=== PATIENT | male | born 1960 | race Two or more races ===

== ENCOUNTER 2024-10-12 16:00 | Inpatient (IN) | payer BC, OTHER ==
[~2024-10-12] VITALS: Ht 177.8 cm; Wt 81.0 kg
--- NOTE | 2024-10-12 17:57 | ED.PDOC ---
Foreign Body HPI Comments HPI: 64 y/o M, presents to the ED for CC of foreign body. Patient states, he has a hiatal hernia and has difficulty eating d/t food constantly getting food stuck in his esophageus; endorses eating a chicken sandwich and having increased vomiting onset, today (10/12/24). Patient relays, following issue having difficulty swallowing with associated regurgitation. Patient denies shortness of breath, excessive drooling, or pain. No other symptoms or modifying factors present at this time. Initial Vitals BP: 129/86 HR:107 RR:22 O2: 97% Temp: 98.7 Past Medical History: Hiatal hernia, HTN, GERD Past Surgical History: APPENDECTOMY Social History: Denies ETOH, smoking, and drug use. Medications: DENIES ANY Allergies: NKA CHACHO, hiatal hernia. HPI: Poor Historian. Past Medical History: Past Surgical History: REVIEW OF SYSTEMS: CONSTITUTIONAL: Denies acute: fever, diaphoresis, chills, generalized weakness. HEAD: Denies acute: headache, photophobia Eyes: Denies acute: Double vision, vision loss, eye pain, eye discharge. EARS: Denies acute: tinnitus, hearing loss, ear discharge, ear pain, THROAT: Denies acute: sore throat, swelling, difficulty swallowing , pain with swallowing, change in voice. NECK: Denies acute: neck pain, neck swelling, stiff neck. HEART: Denies acute : chest pain, palpitations, LUNGS: Denies acute: SOB, wheezing, cough, hemoptysis ABDOMEN: Denies acute: abdominal pain, , diarrhea, melena , hematemesis, hematochezia SKIN: Denies acute: rash, redness, lesions, itchiness. EXTREMITIES: Denies acute: calf pain, numbness, tingling, weakness, denies pain in extremity. Denies acute: Low back pain. Neuro: Denies acute: focal neurological deficit, motor or sensory focal neurological deficit, tremors, seizure like activity, confusion, dizziness, change in mental status, loss of bowel or bladder function, cauda equina like symptoms. : Denies acute: dysuria, hematuria, flank pain, increase in urinary frequency. PSYCH: Denies acute: hallucination, suicidal ideation, homicidal ideation. PHYSICAL EXAM: General: ----no----acute distress, awake and alert. Head: normocephalic, atraumatic. Neck: supple, trachea is midline, no swelling. Throat: Normal phonation. Eyes:, no erythema, no purulent discharge, no proptosis, no icterus. Heart: regular rate, regular rhythm, no significant murmur appreciated. Lungs: no apparent respiratory distress, Able to speak in full sentences. No wheezing, no rhonchi, no crackles. No stridors Clear to auscultation bilaterally. Abdomen: non tender to palpation, non distended, soft, no guarding, no rebound, + bowel sounds. Neuro: Awake, Alert, oriented to name, self, situation, follows commands GCS=15. Speech is normal. Skin: no petechia, no purpura, no cyanosis, non-pale, not jaundice. Lower extremities: --no - Pitting edema no deformity, no focal swelling, no calf TTP. Makes eye contact. moves all four extremities. Face: no apparent facial droop. Ambulating in the ED independently. ED COURSE: DISCLAIMER: This medical document was created using an electronic medical record system with voice recognition software and computerized dictation system. Although this document has been carefully reviewed, there might still be some phonetic and typographical errors. Occasional wrong-word or "sound-alike" substitutions may have occurred due to the inherent limitations of voice recognition software. These areas are purely typographical due to imperfections of the software programs and do not reflect any compromise in the patient's medical care. Please read the chart carefully and recognize, using context, where these substitutions have occurred. Chief Complaint: Foreign Body Time Seen by MD: 17:15 History of Present Illness: Nurses Notes, Medications, Allergies Allergies: Coded Allergies: NO KNOWN ALLERGIES (Unverified , 10/12/24) Home Meds Reported Medications Amlodipine Besylate (Amlodipine Besylate) 10 Mg Tab, 1 TAB PO DAILY 10/13/24 Information Source: Patient Mode of Arrival: Ambulatory Timing: Minutes Duration: Since onset Severity: Mild Ability to handle secretions: Difficult Prehospital treatment: None Location: Esophagus Context: Ingestion Foreign Body: Food Removal: Was not attempted Associated signs and symptoms: Other (vomiting) Was a procedure done? Was a procedure done?: No FB Differential Dx Differential Diagnosis: Esophageal Obstruction, Foreign Body, Perforation, Other (Hiatal hernia, esophageal strictures, neoplasm, obstruction, volvulus,) X-Ray, Labs, Meds, VS Vital Signs Date Time Temp Pulse Resp B/P (MAP) Pulse Ox O2 Delivery O2 Flow Rate FiO2 10/12/24 20:30 135/90 10/12/24 20:29 97.8 79 18 135/90 (105) 97 97.8 10/12/24 20:14 Room Air* 0 21 10/12/24 16:15 98.7 107 22 129/86 (100) 7 98.7 Lab Test 10/12/24 21:40 Range/Units White Blood Count 10.5 4.4-10.8 10^3/uL Red Blood Count 5.61 4.5-5.90 10^6/uL Hemoglobin 16.9 13.5-17.5 g/dL Hematocrit 49.4 41.0-53.0 % Mean Corpuscular Volume 88.2 80.0-100.0 fL Mean Corpuscular Hemoglobin 30.2 28.0-32.0 pg Mean Corpuscular Hemoglobin Concent 34.2 32.0-36.0 g/dL Red Cell Distribution Width 13.4 11.8-14.3 % Platelet Count 199 140-450 10^3/uL Mean Platelet Volume 8.4 6.9-10.8 fL Neutrophils (%) (Auto) 74.8 37.0-80.0 % Lymphocytes (%) (Auto) 17.5 10.0-50.0 % Monocytes (%) (Auto) 6.9 0.0-12.0 % Eosinophils (%) (Auto) 0.4 0.0-7.0 % Basophils (%) (Auto) 0.4 0.0-2.0 % Neutrophils # (Auto) 7.8 1.6-8.6 10 ^3/uL Lymphocytes # (Auto) 1.8 0.4-5.4 10 ^3/uL Monocytes # (Auto) 0.7 0-1.3 10 ^3/uL Eosinophils # (Auto) 0 0-0.8 10 ^3/uL Basophils # (Auto) 0 0-0.2 10 ^3/uL Nucleated Red Blood Cells 0.0 % Sodium Level 141 136-145 mmol/L Potassium Level 3.7 3.5-5.1 mmol/L Chloride Level 105 98-107 mmol/L Carbon Dioxide Level 28 20-31 mmol/L Anion Gap 8 5-15 Blood Urea Nitrogen 14 9-23 mg/dL Creatinine 1.46 H 0.700-1.30 mg/dL Glomerular Filtration Rate Calc 53 >90 mL/min BUN/Creatinine Ratio 9.6 L 10.0-20.0 Serum Glucose 117 H 74-106 mg/dL Lactic Acid Level 0.8 0.4-2.0 mmol/L Calcium Level 9.2 8.7-10.4 mg/dL Total Bilirubin 0.7 0.2-1.0 mg/dL Aspartate Amino Transferase (AST) 21 13-40 U/L Alanine Aminotransferase (ALT) 21 7-40 U/L Alkaline Phosphatase 73 46-116 U/L Total Protein 7.2 5.7-8.2 g/dL Albumin 4.6 3.2-4.8 g/dL [place] [address] Ph: [phone] DIAGNOSTIC IMAGING Diagnostic Imaging Report : [id number] Signed PATIENT: CHACHO CORBETTACCT: [id number] UNIT: [id number] : 1960 LOC: ER ROOM / BED: / AGE / SEX: 64 / M ADM STATUS: REG ER SERVICE 31 ORDERING PHYSICIAN: RAOUL GODWIN DO PROCEDURE(s): ABPL - CT AB PEL WO CON-NO ORAL OR IV REASON: Bolus impaction, nausea vomiting ORDER NUMBER(s): [id number], ACCESSION NUMBER(s): [id number] Exam: CT CT AB PEL WO CON-NO ORAL OR IV History: Bolus impaction, nausea vomiting Comparison Study: None Technique: Multidetector spiral CT of the abdomen was performed from lung bases to pubic symphysis. Imaging was performed without IV contrast. Axial, coronal and sagittal multiplanar reformats were obtained from the axial data set by the technologist. Radiation dose : 1. Abdomen/Pelvis: CTDIvol 11.82 mGy, DLP 625.03 mGy*cm. Findings: Evaluation of solid organs is limited due to lack of intravenous contrast use. Lung bases are unremarkable The liver, gallbladder, spleen, pancreas, adrenal glands, kidneys, and urinary bladder unremarkable. Prostate is enlarged measuring 6 cm. Small hiatal hernia. Small bowel is within normal limits. Status post appendectomy. Several colonic diverticula at the hepatic flexure. Mild diverticulosis within the descending colon. Minimal atherosclerotic calcifications. Lymph nodes around markable. The bones are within normal limits. IMPRESSION: 1. No acute abdominal or pelvic findings. 2. Small hiatal hernia 3. Prostatomegaly 4. Minimal diverticulosis 5. Status post appendectomy Radiation optimization: All CT scans at this facility use at least one of these dose optimization techniques: automated exposure control mA and/or kV adjustment per patient size (includes targeted exams where dose is matched to clinical indication) or iterative reconstruction. ATED BY: SHIREEN FOX MD DICTATED DATE/TIME: 10/12/242204 SIGNED BY: SHIREEN FOX MD SIGNED DATE/TIME: 10/12/242204 CC: Time of 1ST Reevaluation: 17:45 Reevaluation 1ST: Unchanged Time of 2ND Reevaluation: 22:14 (Patient did not improve despite medications. I will admit the patient for GI evaluation.) Reevaluation 2ND: Unchanged Patient Education/Counseling: Diagnosis, Treatment Family Education/Counseling: No Family Present Comments Patient presented with the above HPI.---food bolus impaction--workup was initiated. patient was found with the above mentioned diagnosis. the following medications were ordered: please refer to order lists of meds and tests obtained by myself Dr. Godwin. Patient ED course and VS have been stabilized. Patient has been reassessed in the ED and remained in a stable condition. Pertinent incidental findings were discussed with the patient and/or family. Patient/family voices understanding and is agreeable with plan. Patient has been observed in the ED adequate length of time to insure improvement/stability. Escalation of care considered: Consideration of escalation to observation or admission Patient was given nitroglycerin sublingual to help to relax his esophageal sphincter, glucagon, patient persisted to have his symptoms. Patient was ADMITTED to the medicine team for further evaluation and treatment of their presentation. All the reports of any imaging studies that were ordered by myself were reviewed by myself. Departure 1 Departure Time of Disposition: 22:13 Impression: Primary Impression: Bolus impaction of digestive tract Disposition: ADMITTED INPATIENT Admit to: Tele Condition: Guarded Discharged With: Self Critical Care Note Critical Care Time?: No I personally scribed for RAOUL GODWIN DO ([email or web address]) on 10/12/24 at 17:57. Electronically submitted by Lottie Rodriguez ([email or web address]). I personally scribed for RAOUL GODWIN DO ([email or web address]) on 10/12/24 at 19:34. Electronically submitted by Monica Basilio ([email or web address]). RAOUL GODWIN DO Oct 12, 2024 17:57
[2024-10-12] MEDS: SODIUM CHLORIDE 0.9% 500 ML IV ONE (20:20)
[2024-10-12] MEDS: NITROGLYCERIN 0.4 MG SL TAB SL ONE (20:30)
[2024-10-12] MEDS: GLUCAGON EMERG KIT 1mg/1ml IV ONE (20:35)
--- NOTE | 2024-10-12 22:07 | DVH ---
Exam: CT CT AB PEL WO CON-NO ORAL OR IV History: Bolus impaction, nausea vomiting Comparison Study: None Technique: Multidetector spiral CT of the abdomen was performed from lung bases to pubic symphysis. Imaging was performed without IV contrast. Axial, coronal and sagittal multiplanar reformats were ob tained from the axial data set by the technologist. Radiation dose : 1. Abdomen/Pelvis: CTDIvol 11.82 mGy, DLP 625.03 mGy*cm. Findings: Evaluation of solid organs is limited due to lack of intravenous contrast use. Lung bases are unremarkable The liver, gallbladder, spleen, pancreas, adrenal glands, kidneys, and urinary bladder unremarkable. Prostate is enlarged measuring 6 cm. Small hiatal hernia. Small bowel is within normal limits. Status post appendectomy. Several colonic d iverticula at the hepatic flexure. Mild diverticulosis within the descending colon. Minimal atherosclerotic calcifications. Lymph nodes around markable. The bones are within normal limits. IMPRESSION: 1. No acute abdominal or pelvic findings. 2. Small hiatal hernia 3. Prostatomegaly 4. Minimal diverticulosis 5. Status post appendectomy Radiation optimization: All CT scans at this facility use at least one of these dose optimization rafa hniques: automated exposure control mA and/or kV adjustment per patient size (includes targeted exam s where dose is matched to clinical indication) or iterative reconstruction.
[2024-10-12 22:22] LABS: Hematocrit 49.4 % (41.0-53.0); Hemoglobin 16.9 g/dL (13.5-17.5); Mean Corpuscular Hemoglobin 30.2 pg (28.0-32.0); Mean Corpuscular Volume 88.2 fL (80.0-100.0); Nucleated Red Blood Cells % 0.0 %
[2024-10-12 22:38] LABS: Alanine Aminotransferase 21 U/L (7-40); Albumin 4.6 g/dL (3.2-4.8); Alkaline Phosphatase 73 U/L (46-116); Anion Gap 8 (5-15); BUN/Creatinine Ratio 9.6 (10.0-20.0); Bilirubin, Total 0.7 mg/dL (0.2-1.0); Blood Urea Nitrogen 14 mg/dL (9-23); Calcium 9.2 mg/dL (8.7-10.4); Carbon Dioxide 28 mmol/L (20-31); Chloride 105 mmol/L (98-107); Glucose 117 mg/dL (74-106); Potassium 3.7 mmol/L (3.5-5.1); Sodium 141 mmol/L (136-145); Total Protein 7.2 g/dL (5.7-8.2)
[2024-10-13] VITALS (10 sets, daily range): BP systolic 119–149; BP diastolic 73–95; PULSE 71–86; RESP 13–18; TEMP 98–98.3; O2SAT 92–98
[2024-10-13] MEDS ORDERED: ONDANSETRON HCL 4 MG/2 ML VIAL IV PRN
--- NOTE | 2024-10-13 00:21 | DVHHP2 ---
History of Present Illness Reason for Visit: Food impaction History of Present Illness 64-year-old male presents for evaluation of foreign body. Patient reports a history of a hiatal hernia and has had episodes of food getting stuck. He states today while eating a sandwich he was unable to swallow. Patient states having several episodes of vomiting and increased salivation. No shortness a breath. No other acute complaints. Past Medical History Hypertension, GERD, hiatal hernia Past Surgical History Appendectomy Family History Noncontributory Smoke: No ALCOHOL: none Drugs: None Lives: with Family Review of Systems Review of Systems Review of systems are currently negative otherwise addressed in HPI. Allergies: Coded Allergies: NO KNOWN ALLERGIES (Unverified , 10/12/24) Medications Current Medications Medications Dose Ordered Sig/Isabel Route Start Time Stop Time Status Last Admin Dose Admin Pantoprazole Sodium 40 mg DAILY IV 10/13/24 10:00 Ondansetron HCl 4 mg Q4HP PRN IV 10/13/24 00:00 Exam Vital Signs Vital Signs Date Time Temp Pulse Resp B/P (MAP) Pulse Ox O2 Delivery O2 Flow Rate FiO2 10/12/24 20:30 135/90 10/12/24 20:29 97.8 79 18 97 97.8 10/12/24 20:14 Room Air* 0 21 Exam Gen: 64-year-old male in mild Skin: Warm, dry, normal color and texture, no rash. HEENT: Normocephalic atraumatic, mucous membranes moist and pink. Neck: Cervical and supraclavicular nodes normal without enlargement, trachea is midline, thyroid gland is normal without masses. Pulmonary: Clear to auscultation and percussion bilaterally. Cardiac: Regular rate and rhythm. No murmur Abdomen: Soft, nontender, nondistended, bowel sounds present all 4 quadrants, no guarding, no rigidity, no organomegaly. Extremities: No cyanosis, clubbing, no edema Neuro: Cranial nerves II through XII grossly intact, normal affect and speech, no focal motor deficits. Labs/Xrays ORDERING PHYSICIAN: RAOUL GODWIN DO PROCEDURE(s): ABPL - CT AB PEL WO CON-NO ORAL OR IV REASON: Bolus impaction, nausea vomiting ORDER NUMBER(s): [id number], ACCESSION NUMBER(s): [id number] Exam: CT CT AB PEL WO CON-NO ORAL OR IV History: Bolus impaction, nausea vomiting Comparison Study: None Technique: Multidetector spiral CT of the abdomen was performed from lung bases to pubic symphysis. Imaging was performed without IV contrast. Axial, coronal and sagittal multiplanar reformats were obtained from the axial data set by the technologist. Radiation dose : 1. Abdomen/Pelvis: CTDIvol 11.82 mGy, DLP 625.03 mGy*cm. Findings: Evaluation of solid organs is limited due to lack of intravenous contrast use. Lung bases are unremarkable The liver, gallbladder, spleen, pancreas, adrenal glands, kidneys, and urinary bladder unremarkable. Prostate is enlarged measuring 6 cm. Small hiatal hernia. Small bowel is within normal limits. Status post appendectomy. Several colonic diverticula at the hepatic flexure. Mild diverticulosis within the descending colon. Minimal atherosclerotic calcifications. Lymph nodes around markable. The bones are within normal limits. IMPRESSION: 1. No acute abdominal or pelvic findings. 2. Small hiatal hernia 3. Prostatomegaly 4. Minimal diverticulosis 5. Status post appendectomy Radiation optimization: All CT scans at this facility use at least one of these dose optimization techniques: automated exposure control mA and/or kV adjustment per patient size (includes targeted exams where dose is matched to clinical indication) or iterative reconstruction. Labs Test 10/12/24 21:40 Range/Units White Blood Count 10.5 4.4-10.8 10^3/uL Red Blood Count 5.61 4.5-5.90 10^6/uL Hemoglobin 16.9 13.5-17.5 g/dL Hematocrit 49.4 41.0-53.0 % Mean Corpuscular Volume 88.2 80.0-100.0 fL Mean Corpuscular Hemoglobin 30.2 28.0-32.0 pg Mean Corpuscular Hemoglobin Concent 34.2 32.0-36.0 g/dL Red Cell Distribution Width 13.4 11.8-14.3 % Platelet Count 199 140-450 10^3/uL Mean Platelet Volume 8.4 6.9-10.8 fL Neutrophils (%) (Auto) 74.8 37.0-80.0 % Lymphocytes (%) (Auto) 17.5 10.0-50.0 % Monocytes (%) (Auto) 6.9 0.0-12.0 % Eosinophils (%) (Auto) 0.4 0.0-7.0 % Basophils (%) (Auto) 0.4 0.0-2.0 % Neutrophils # (Auto) 7.8 1.6-8.6 10 ^3/uL Lymphocytes # (Auto) 1.8 0.4-5.4 10 ^3/uL Monocytes # (Auto) 0.7 0-1.3 10 ^3/uL Eosinophils # (Auto) 0 0-0.8 10 ^3/uL Basophils # (Auto) 0 0-0.2 10 ^3/uL Nucleated Red Blood Cells 0.0 % Sodium Level 141 136-145 mmol/L Potassium Level 3.7 3.5-5.1 mmol/L Chloride Level 105 98-107 mmol/L Carbon Dioxide Level 28 20-31 mmol/L Anion Gap 8 5-15 Blood Urea Nitrogen 14 9-23 mg/dL Creatinine 1.46 H 0.700-1.30 mg/dL Glomerular Filtration Rate Calc 53 >90 mL/min BUN/Creatinine Ratio 9.6 L 10.0-20.0 Serum Glucose 117 H 74-106 mg/dL Lactic Acid Level 0.8 0.4-2.0 mmol/L Calcium Level 9.2 8.7-10.4 mg/dL Total Bilirubin 0.7 0.2-1.0 mg/dL Aspartate Amino Transferase (AST) 21 13-40 U/L Alanine Aminotransferase (ALT) 21 7-40 U/L Alkaline Phosphatase 73 46-116 U/L Total Protein 7.2 5.7-8.2 g/dL Albumin 4.6 3.2-4.8 g/dL Assessment/Plan Assessment/Plan Assessment Esophageal food impaction Acute kidney injury Plan Admit the patient to [facility] to the hospitalist GI consult Maintenance IV fluids Continue treatment per orders. Plan discussed with: Patient My Orders Orders - JACI CHANCE Procedure Category Date Status Time Admit ADMIT 10/12/24 Transmitted 23:56 * Gi Dvh Recordak Operator CONS 10/12/24 Transmitted 23:57 D5w/Sod Chlo 0.9% PHA 10/13/24 In Process (D5w Ns 0.9%) 00:00 Pantoprazole PHA 10/13/24 In Process (Protonix) 10:00 Ondansetron Hcl PHA 10/13/24 In Process (Zofran) 00:00 Condition: Stable JOSÉ ANTONIO 10/12/24 In Process 23:57 Bedrest With Bathroom JOSÉ ANTONIO 10/12/24 In Process Privileg 23:57 Date of Service: Oct 12, 2024 Billing Provider: JACI CHANCE Common Visit Codes: [id number] INP/OBS CARE (MOD) JACI CHANCE Oct 13, 2024 00:21
[2024-10-13] MEDS: D5W/SOD CHLO 0.9% 1,000 ML IV ONE (03:26)
[2024-10-13] MEDS ORDERED: AMLO1TAB23 PO (05:02)
[2024-10-13] MEDS: PANTOPRAZOLE 40 MG/10 ML VIAL INJ IV SCH ×2 (08:19→21:27)
--- NOTE | 2024-10-13 13:16 | DVHPN2 ---
Subjective Denies any symptoms Changes from previous H/P or p: No Changes General: Per HPI Objective Vitals Vital Signs Date Time Temp Pulse Resp B/P (MAP) Pulse Ox O2 Delivery O2 Flow Rate FiO2 10/13/24 09:00 98.3 86 17 141/92 (108) 95 98.3 10/13/24 08:00 Room Air* 0 21 Intake/Output Intake and Output 10/13/24 06:59 Intake Total 500 ml Balance 500 ml Intake Oral 0 ml IV Total 500 ml # Voids 1 General Appearance: Alert, Oriented X3, Cooperative, mild distress HEENT: Atraumatic, PERRLA Lungs: Clear to auscultation, Normal air movement Cardiovascular: Normal S1, Normal S2 Abdomen: Normal bowel sounds, Soft, No tenderness, No hepatospenomegaly Musculoskeletal: Normal sensory function, Normal motor function Neuro: Normal gait, Normal speech Skin: Dry, Intact Psych/Mental Status: Mental status NL, Mood NL Medications Current Medications Medications Dose Ordered Sig/Isabel Route Start Time Stop Time Status Last Admin Dose Admin Pantoprazole Sodium 40 mg DAILY IV 10/13/24 10:00 10/13/24 08:19 40 MG Ondansetron HCl 4 mg Q4HP PRN IV 10/13/24 00:00 Laboratory Results Laboratory Tests 10/12/24 21:40 Chemistry Test 10/12/24 21:40 Albumin 4.6 g/dL (3.2-4.8) Calcium Level 9.2 mg/dL (8.7-10.4) Total Protein 7.2 g/dL (5.7-8.2) LFT Test 10/12/24 21:40 Alanine Aminotransferase (ALT) 21 U/L (7-40) Alkaline Phosphatase 73 U/L (46-116) Aspartate Amino Transferase (AST) 21 U/L (13-40) Total Bilirubin 0.7 mg/dL (0.2-1.0) Labs and/or images reviewed: Labs reviewed by me, Image(s) reviewed by me Assessment/Plan Assessment/Plan Impression: -probable food bolus obstruction -? Acute kidney injury, vasomotor nephropathy -primary hypertension -hiatal hernia -GERD Plan: -GI consultation -NPO status -IV hydration -PPI -further course of care per GI recommendations Total time spent with patient discussing and formulating plan of care: 35 minutes. This medical document was created using an electronic medical record system with [employer] dictation system. Although this document has been carefully reviewed, there may still be some phonetic and typographical errors. These areas are purely typographical due to imperfections of the software programs, and do not reflect any compromise in the patient's medical care. Plan discussed with: Patient, Other (RN) My Orders Orders - SCOTT SOSA NP Procedure Category Date Status Time NS PHA 10/13/24 Transmitted 13:15 Date of Service: Oct 13, 2024 Billing Provider: SCOTT SOSA NP Common Visit Codes: [id number] INP/OBS CARE(HIGH) SCOTT SOSA NP Oct 13, 2024 13:16
--- NOTE | 2024-10-13 14:09 | DVHINCON2 ---
Date of service: Oct 13, 2024 Referring Physician Boogie Viera Reason for Consultation Foreign body in esophagus History of Present Illness 64-year-old male presents for evaluation of foreign body. Patient reports a history of a hiatal hernia and has had episodes of food getting stuck. He states today while eating a sandwich he was unable to swallow. Patient states having several episodes of vomiting and increased salivation. No shortness a breath. No other acute complaints. Past Medical History Past Medical History Hypertension, GERD, hiatal hernia Past Surgical History Past Surgical History Appendectomy Family History: Patient reports no known family medical history. Social History Smoke: No ALCOHOL: none Drugs: None Allergies: Coded Allergies: NO KNOWN ALLERGIES (Unverified , 10/12/24) Home Meds Reported Medications Amlodipine Besylate (Amlodipine Besylate) 10 Mg Tab, 1 TAB PO DAILY 10/13/24 Current Medications Current Medications Medications (Trade) Dose Ordered Sig/Isabel Route PRN Reason Start Time Stop Time Status Last Admin Pantoprazole Sodium (Protonix) 40 mg DAILY IV 10/13/24 10:00 10/13/24 08:19 Ondansetron HCl (Zofran) 4 mg Q4HP PRN IV NAUSEA / VOMITING 10/13/24 00:00 Sodium Chloride 1,000 ml @ 75 mls/hr [id number] IV 10/13/24 13:15 UNV Vital Signs Vital Signs Date Time Temp Pulse Resp B/P (MAP) Pulse Ox O2 Delivery O2 Flow Rate FiO2 10/13/24 13:00 98.2 75 16 149/95 (113) 96 98.2 10/13/24 08:00 Room Air* 0 21 Physical Exam General Appearance: Alert, Oriented X3, Cooperative, mild distress HEENT: Atraumatic, PERRLA Lungs: Clear to auscultation, Normal air movement Cardiovascular: Normal S1, Normal S2 Abdomen: Normal bowel sounds, Soft, No tenderness, No hepatospenomegaly Musculoskeletal: Normal sensory function, Normal motor function Neuro: Normal gait, Normal speech Skin: Dry, Intact Psych/Mental Status: Mental status NL, Mood NL Labs/Diagnostic Data Labs Test 10/12/24 21:40 Range/Units White Blood Count 10.5 4.4-10.8 10^3/uL Red Blood Count 5.61 4.5-5.90 10^6/uL Hemoglobin 16.9 13.5-17.5 g/dL Hematocrit 49.4 41.0-53.0 % Mean Corpuscular Volume 88.2 80.0-100.0 fL Mean Corpuscular Hemoglobin 30.2 28.0-32.0 pg Mean Corpuscular Hemoglobin Concent 34.2 32.0-36.0 g/dL Red Cell Distribution Width 13.4 11.8-14.3 % Platelet Count 199 140-450 10^3/uL Mean Platelet Volume 8.4 6.9-10.8 fL Neutrophils (%) (Auto) 74.8 37.0-80.0 % Lymphocytes (%) (Auto) 17.5 10.0-50.0 % Monocytes (%) (Auto) 6.9 0.0-12.0 % Eosinophils (%) (Auto) 0.4 0.0-7.0 % Basophils (%) (Auto) 0.4 0.0-2.0 % Neutrophils # (Auto) 7.8 1.6-8.6 10 ^3/uL Lymphocytes # (Auto) 1.8 0.4-5.4 10 ^3/uL Monocytes # (Auto) 0.7 0-1.3 10 ^3/uL Eosinophils # (Auto) 0 0-0.8 10 ^3/uL Basophils # (Auto) 0 0-0.2 10 ^3/uL Nucleated Red Blood Cells 0.0 % Sodium Level 141 136-145 mmol/L Potassium Level 3.7 3.5-5.1 mmol/L Chloride Level 105 98-107 mmol/L Carbon Dioxide Level 28 20-31 mmol/L Anion Gap 8 5-15 Blood Urea Nitrogen 14 9-23 mg/dL Creatinine 1.46 H 0.700-1.30 mg/dL Glomerular Filtration Rate Calc 53 >90 mL/min BUN/Creatinine Ratio 9.6 L 10.0-20.0 Serum Glucose 117 H 74-106 mg/dL Lactic Acid Level 0.8 0.4-2.0 mmol/L Calcium Level 9.2 8.7-10.4 mg/dL Total Bilirubin 0.7 0.2-1.0 mg/dL Aspartate Amino Transferase (AST) 21 13-40 U/L Alanine Aminotransferase (ALT) 21 7-40 U/L Alkaline Phosphatase 73 46-116 U/L Total Protein 7.2 5.7-8.2 g/dL Albumin 4.6 3.2-4.8 g/dL CT SCAN ABD PELVIS IMPRESSION: 1. No acute abdominal or pelvic findings. 2. Small hiatal hernia 3. Prostatomegaly 4. Minimal diverticulosis 5. Status post appendectomy Problems(with codes): (1) N&V (nausea and vomiting) (2) Dysphagia (3) Hiatal hernia (4) Bolus impaction of digestive tract Plan/Recommendation Plan Keep NPO IV Protonix 40 mg q.12 hours Schedule endoscopy with possible biopsy possible removal of foreign body possible dilation Risks and ulcer were explained Plan discussed with: Patient, Other (Boogie Geller) MATHIEU WOOTEN MD Oct 13, 2024 14:09
[2024-10-13] MEDS: SODIUM CHLORIDE 0.9% 1,000 ML IV SCH (14:30)
[2024-10-13] MEDS ORDERED: fentaNYL CITRATE 100 MCG/2 ML VL ONE (14:57)
[2024-10-13] MEDS ORDERED: MIDAZOLAM HCL 2MG/2ML 2ml VIAL (1mg/ml) ONE (14:57)
[2024-10-13] MEDS ORDERED: PROPOFOL 10 MG/ML 20 ML IV ONE (15:19)
[2024-10-13] MEDS ORDERED: SODIUM CHLORIDE LOCK 10 ML ONE (15:28)
[2024-10-13] MEDS: LIDOCAINE VISCOUS 2% 15ML UD ONE (15:43)
[2024-10-13] MEDS: MIDAZOLAM HCL 5 MG/ML-1ML VIAL ONE (15:44)
[2024-10-13] MEDS: fentaNYL CITRATE 100 MCG/2 ML VL ONE (15:44)
[2024-10-13] MEDS: diphenhdrAMINE HCL 50 MG/1 ML VL ONE (15:44)
[2024-10-13] MEDS ORDERED: hydrALAZINE HCL 20 MG/ML VL IV PRN (16:00)
--- NOTE | 2024-10-13 16:02 | DVHOP2 ---
Operative Report DATE OF OPERATION: 10/13/24 PROCEDURE: Upper Endoscopy with biopsy. PREOPERATIVE INDICATION: The patient is a 64 -year-old male undergoing endoscopy for foreign body in esophagus and history of dysphagia POSTOPERATIVE DIAGNOSES: 1. 2 cm sliding-type hiatal hernia with slight esophageal inflammatory stricture at GE junction that was auto dilated with the endoscope 2. Mild gastroduodenitis otherwise normal examination up to the 2nd and 3rd part of the duodenal with no foreign body in the esophagus PROCEDURE PERFORMED BY: Mathieu Guy GI NURSE: Nicki SCOPE: Olympus videoendoscope. ASA CLASS: 2. PREOPERATIVE MEDICATIONS: Versed 3 mg, Fentanyl 50 mcg, [id number] mg I administered moderate sedation throughout this _8_ minutes procedure. An independent trained observer pushed medications at my direction, and monitored the patient's level of consciousness and physiological status throughout. PROCEDURE IN DETAIL: After obtaining an informed consent, the patient was placed on left lateral decubitus position. The patient was then sedated with the above medications. A bite block was placed between his teeth. The endoscope was then passed through the oropharynx, into the esophagus, and through the stomach and pylorus up to the second and third part of the duodenum. The endoscope was then withdrawn. The 2nd and third part of the duodenal were normal. Duodenal bulb showed mild duodenitis. Duodenal biopsies were obtained. The pre-pyloric area antrum and body showed mild gastritis. Gastric biopsies were obtained. On retroflexion the fundus cardia and angularis were normal. The endoscope was then withdrawn into the distal esophagus Patient had a 2 cm sliding-type hiatal hernia with slight inflammatory stricture at the GE junction which was auto dilated with the endoscope. There had been no residual foreign body or food in the distal esophagus at this time. GE junction biopsies were obtained. The remaining distal and proximal esophagus and oropharynx were unremarkable The patient tolerated the procedure well without difficulty. COMPLICATIONS : None SPECIMENS: Duodenal Biopsies Gastric biopsies GE junction biopsies DISPOSITION: Transfer back to the floor Stable PLAN: 1. Await for biopsy result 2. Will place pt on Protonix 40 mg bid 3. Carafate suspension 1 g p.o. 4 times a day 4. DC aspirin NSAIDs smoking alcohol 5. Patient needs to be maintained on a PPI long-term 6. Outpatient follow up with me in 3-4 weeks to discuss further management including possible repeat endoscopy once the inflammation has subsided and possible dilation 7. Outpatient follow up with me for elective screening colonoscopy 8. Resume pureed diet advance to soft mechanical MATHIEU GUY MD Oct 13, 2024 16:02
[2024-10-13] MEDS: SUCRALFATE 1 GM/10 ML ORAL SUSP PO SCH (21:27)
[2024-10-14 01:00] VITALS: BP 118/85; PULSE 71; RESP 16; TEMP 98.9; O2SAT 95
[2024-10-14 05:00] VITALS: BP 120/83; PULSE 67; RESP 16; TEMP 98.1; O2SAT 95
[2024-10-14 08:00] VITALS: RESP 18
[2024-10-14 08:30] VITALS: BP 144/97; PULSE 66; RESP 18; TEMP 98; O2SAT 98
[2024-10-14 12:56] VITALS: BP 132/88; PULSE 74; RESP 19; TEMP 97.6; O2SAT 96
--- NOTE | 2024-10-14 14:58 | DVHDS2 ---
Discharge Summary Date of Admission Oct 12, 2024 at 23:56 Date of Discharge: Oct 14, 2024 Admitting Diagnosis Esophageal food impaction Labs/Diagnostic Data: Laboratory Results Test 10/12/24 21:40 White Blood Count 10.5 10^3/uL (4.4-10.8) Red Blood Count 5.61 10^6/uL (4.5-5.90) Hemoglobin 16.9 g/dL (13.5-17.5) Hematocrit 49.4 % (41.0-53.0) Mean Corpuscular Volume 88.2 fL (80.0-100.0) Mean Corpuscular Hemoglobin 30.2 pg (28.0-32.0) Mean Corpuscular Hemoglobin Concent 34.2 g/dL (32.0-36.0) Red Cell Distribution Width 13.4 % (11.8-14.3) Platelet Count 199 10^3/uL (140-450) Mean Platelet Volume 8.4 fL (6.9-10.8) Neutrophils (%) (Auto) 74.8 % (37.0-80.0) Lymphocytes (%) (Auto) 17.5 % (10.0-50.0) Monocytes (%) (Auto) 6.9 % (0.0-12.0) Eosinophils (%) (Auto) 0.4 % (0.0-7.0) Basophils (%) (Auto) 0.4 % (0.0-2.0) Neutrophils # (Auto) 7.8 10 ^3/uL (1.6-8.6) Lymphocytes # (Auto) 1.8 10 ^3/uL (0.4-5.4) Monocytes # (Auto) 0.7 10 ^3/uL (0-1.3) Eosinophils # (Auto) 0 10 ^3/uL (0-0.8) Basophils # (Auto) 0 10 ^3/uL (0-0.2) Nucleated Red Blood Cells 0.0 % Sodium Level 141 mmol/L (136-145) Potassium Level 3.7 mmol/L (3.5-5.1) Chloride Level 105 mmol/L (98-107) Carbon Dioxide Level 28 mmol/L (20-31) Anion Gap 8 (5-15) Blood Urea Nitrogen 14 mg/dL (9-23) Creatinine 1.46 mg/dL (0.700-1.30) Glomerular Filtration Rate Calc 53 mL/min (>90) BUN/Creatinine Ratio 9.6 (10.0-20.0) Serum Glucose 117 mg/dL (74-106) Lactic Acid Level 0.8 mmol/L (0.4-2.0) Calcium Level 9.2 mg/dL (8.7-10.4) Total Bilirubin 0.7 mg/dL (0.2-1.0) Aspartate Amino Transferase (AST) 21 U/L (13-40) Alanine Aminotransferase (ALT) 21 U/L (7-40) Alkaline Phosphatase 73 U/L (46-116) Total Protein 7.2 g/dL (5.7-8.2) Albumin 4.6 g/dL (3.2-4.8) Other Laboratory Tests 10/12/24 21:40 Brief Hx & Hospital Course: History of Present Illness 64-year-old male presents for evaluation of foreign body. Patient reports a history of a hiatal hernia and has had episodes of food getting stuck. He states today while eating a sandwich he was unable to swallow. Patient states having several episodes of vomiting and increased salivation. No shortness a breath. No other acute complaints. Course of hospitalization: Patient had GI consultation, undergoing EGD. Patient was found to have no obstruction. Patient was continued on IV hydration, ppi. Patient's diet was advanced. Patient's sodium AMA before being discharged today. Total time spent with patient discussing and formulating plan of care: 35 minutes. This medical document was created using an electronic medical record system with [employer] dictation system. Although this document has been carefully reviewed, there may still be some phonetic and typographical errors. These areas are purely typographical due to imperfections of the software programs, and do not reflect any compromise in the patient's medical care. Condition at Discharge: Fair Final Diagnosis/Problems List Food bolus obstruction Secondary diagnosis:-probable food bolus obstruction -? Acute kidney injury, vasomotor nephropathy -primary hypertension -hiatal hernia -GERD Discharge Disposition: AMA Discharge Instruct/Medications Scheduled Amlodipine Besylate (Amlodipine Besylate), 1 TAB PO DAILY, (Reported) 36 Discharge Statement: "Patient was advised to return to the ER or call 911 if any headaches, dizziness, shortness of breath, chest pain, abdominal pain, bleeding, fevers, or worsening of medical condition. Patient was counseled about treatment plan, medications, possible side effects, patientverbalized understanding. All questions were answered to the best of my ability. This discharge took greater then 30 minutes in planning, reviewing documentation, counseling the patient, and discussing with other team members." ASSESSMENT ASSESSMENT Assessment Date of Service: Oct 14, 2024 Billing Provider: SCOTT SOSA NP Common Visit Codes: 98166-JSK/OBS DISCH DAY <30MIN SCOTT SOSA NP Oct 14, 2024 14:58
--- NOTE | 2024-10-14 23:23 | DVHPN2 ---
Progress Note - Dictate Date Seen: Oct 14, 2024 (Late entryTime of visit 12 noon) Medical Necessity Reason Pt with a Central, PICC or Fol: No Subjective No new complaints Patient is tolerating a diet There was no nausea vomiting EGD showed hiatal hernia slight stricture and mild gastroduodenitis vital signs Vital Sign Date Time Temp Pulse Resp B/P (MAP) Pulse Ox O2 Delivery O2 Flow Rate FiO2 10/14/24 12:56 97.6 74 19 132/88 (103) 96 97.6 10/14/24 08:00 Room Air* 0 21 Total Intake and Output 10/13/24 10/13/24 10/14/24 15:00 23:00 07:00 Intake Total 100 ml 950 ml 440 ml Balance 100 ml 950 ml 440 ml objective General Appearance: Alert, Oriented X3, Cooperative, mild distress HEENT: Atraumatic, PERRLA Lungs: Clear to auscultation, Normal air movement Cardiovascular: Normal S1, Normal S2 Abdomen: Normal bowel sounds, Soft, No tenderness, No hepatospenomegaly Musculoskeletal: Normal sensory function, Normal motor function Neuro: Normal gait, Normal speech Skin: Dry, Intact Psych/Mental Status: Mental status NL, Mood NL laboratory and microbiology Laboratory Tests 10/12/24 21:40 Test 10/12/24 21:40 Range/Units Serum Glucose 117 H 74-106 mg/dL Problems(with codes): (1) Bolus impaction of digestive tract (2) N&V (nausea and vomiting) (3) Dysphagia (4) Hiatal hernia Prognosis Plan Advance to soft mechanical diet Protonix 40 mg p.o. twice a day Carafate 1 g p.o. twice a day Lifestyle and dietary modification for GERD Outpatient follow up with me in 2-4 weeks to review results discuss further management Patient also will follow up in my services for outpatient elective colonoscopy Plan discussed with: Patient MATHIEU WOOTEN MD Oct 14, 2024 23:22
== END 2024-10-14 13:30 | disposition left against medical advice (07) | DRG 393 ==
LOC: ER 16:00 → OVERFLOW 23:56 → WEST WING 10-13 02:53
PROVIDERS: ADMIT Nurse Practitioner Acute Care; ATTEND Nurse Practitioner Acute Care
PROC: 0DB68ZX Excision of Stomach, Via Natural or Artificial Opening Endoscopic, Diagnostic (ICD-10-PCS; 2024-10-13)
PROC: 0DB48ZX Excision of Esophagogastric Junction, Via Natural or Artificial Opening Endoscopic, Diagnostic (ICD-10-PCS; 2024-10-13)
PROC: 0DB98ZX Excision of Duodenum, Via Natural or Artificial Opening Endoscopic, Diagnostic (ICD-10-PCS; principal; 2024-10-13 15:40)
DX: T18.128A Food in esophagus causing other injury, initial encounter (principal); N17.0 Acute kidney failure with tubular necrosis; W44.F3XA Food entering into or through a natural orifice, initial encounter; K44.9 Diaphragmatic hernia without obstruction or gangrene; K21.9 Gastro-esophageal reflux disease without esophagitis; I10 Essential (primary) hypertension; K29.90 Gastroduodenitis, unspecified, without bleeding; Z90.49 Acquired absence of other specified parts of digestive tract; Z79.899 Other long term (current) drug therapy; Y93.89 Activity, other specified; Y92.89 Other specified places as the place of occurrence of the external cause; Y99.8 Other external cause status
CPT/HCPCS: 36415; 43239; 74176; 80053; 83605; 85025; 96374; G0378; J1100; J2250; J2470; J2704